=== PATIENT | female | born 1985 | race Caucasian/White ===

== ENCOUNTER 2025-08-29 19:57 | Outpatient (OUT) | payer OTHER, SELFPAY ==
--- OUTSIDE RECORDS SUMMARY | 2025-08-29 20:00 | XMS_ITS | Clinical Summary ---
Author Organization [facility] Address [facility] [place] [address] Care Team Providers Care Lead Software Tester Name Role Phone Catalino Webster DO Primary Care Provider Roseann Shaffer CHILDCARE ATTENDANT.CORPORATE SALES TRAINER Unavailable Marcella Verdin CHILDCARE ATTENDANT.CORPORATE SALES TRAINER Unavailable Allergies Active AllergyReactionsCriticalityNoted DateComments Sulfamethoxazole-IygqdsvmlswbQqzqdcq16/23/2023PenicillinsSwellingMedium 07/04/2006 Allergy skin tests were negative to penicillin on September 23, 2024. Patient will complete a graded challenge to amoxicillin in the allergy department on 12/28/24 Medications * This document contains information received from the source organization and may not represent a complete record from that organization. MedicationSigDispense QuantityRefillsLast FilledStart DateEnd DateStatus albuterol HFA (VENTOLIN HFA) 90 mcg/actuation inhaler Indications:Chronic cough,Subacute cough,WheezingInhale 2 Puffs as instructed every 4 hours as needed for wheezing/shortness of breath. 54 g 4Active olopatadine (PATANOL) 0.1 % ophthalmic solution Use 1 Drop in both eyes two times a day as needed. 5 mL 1105Active azelastine 0.1% nasal spray Use 2 Sprays in each nostril two times a day as needed. 30 mL 1105Active cetirizine (ZYRTEC) 10 mg tablet Indications:Allergic rhinitis, unspecified seasonality, unspecified triggerTAKE 1 TABLET DAILY 90 tablet 5Active budesonide-formoterol (SYMBICORT) 160-4.5 mcg/actuation inhaler Indications:Mild persistent asthma without complication (HCC)Inhale 2 puffs as instructed two times a day. 3 each 308508/ctive Active Problems ProblemNoted DateDiagnosed DateMild persistent asthma without complication 07/22/2023bnormal facial hair01/15/2023Well adult exam01/15/2023Obesity, Class III, BMI >= 40 E66.01011/12/2017Female zhajwjjna04/16/2018TMJ syndrome Resolved Problems ProblemNoted DateDiagnosed DateResolved DateObesity, Class II, BMI 35-39.9 Sprain of neck Encounters DateTypeDepartmentCare XdjxInwsxugajgq79/26/2025Telephone [facility] [address] [place] [address] Catalino Webster, DO 07/20/2025 Patient Msg Pulmonary Medicine [address] [place] [address] Stephanie Luna APRN.CORPORATE SALES TRAINER home sleep study07/20/2025Telephone [facility] [address] [place] [address] Catalino Webster, DO Patient Ngtfmhqg39/19/2025 Get Medical Advice [facility] [address] [place] [address] Catalino Webster, DO Blood work07/14/2025 Patient Msg Neurology [address] [place] [address] Provider, Ccf HSAT KMVBHQAJIIWGY77/31/2025bstract Neurology [address] [place] [address] Main, Sleep Center 06/22/2025 2:00 PM EDTOffice Visit Pulmonary Medicine [address] [place] [address] Stephanie Luna APRN.CORPORATE SALES TRAINER Mild persistent asthma without complication (HCC) (Primary Dx); Seasonal allergies; Morbid obesity (HCC); Witnessed episode of apnea; Uipncrb9606/22/2025 Get Medical Advice [facility] [address] [place] [address] Catalino Webster, DO Mfgcwvv8906/22/2025 Get Medical Advice [facility] [address] [place] [address] Catalino Webster, DO Biadmig9506/21/20256766Wzjrln74/10/2025 Patient Msg [facility] [address] [place] [address] Catalino Webster, DO Activate Your Health Journey: A Supportive Approach to Weight Managementfrom Last 3 Months Immunizations ImmunizationAdministration DatesNext DueHaemophilus influenzae b (Hib PRP-D) vaccine (PROHIBIT)06/25/1986diphtheria tetanus (DT) vaccine, nlfwmjvki53/01/2005 diphtheria tetanus pertussis-Haemophilus influenzae b (DTaP-Hib) vaccine (TRIHIBIT)02/13/1990,12/18/1985,1984,1984,1984hepatitis B immune globulin (HBIG) (HEPAGAM B, HYPERHEP B, NABI-HB)07/07/1999,01/02/1999, 12/02/1998measles mumps rubella (MMR) vaccine (M-M-R II, PRIORIX)02/14/1997, 10/02/1985meningococcal (MPSV4) vaccine, quadrivalent (MENOMUNE)03/10/2003 poliovirus (OPV) vaccine, trivalent, live, oral (ORIMUNE)02/13/1990,12/18/1985, 1984,1984tetanus diphtheria pertussis (Tdap) vaccine, age 7+ yr (ADACEL, BOOSTRIX)03/31/2017tuberculin skin test (TST-PPD), purified protein derivative, dotmviwmsdr71/15/2014,04/15/2007 Family History Medical HistoryRelationCommentsBreast CancerMaternal Grandmotherbreast ca approx. age 40DiabetesMotherHypertensionMothercvaMothercause of deathRelation StatusCommentsFatherAliveMaternal GrandfatherDeceasedHeartMaternal Grandmother DeceasedPancreatic CAMotherAlivePaternal GrandfatherAlivePaternal Grandmother AliveSisterAlive Social History Tobacco UseTypesPacks/DayYears UsedDateSmoking Tobacco: NeverSmokeless Tobacco: Never Tobacco Cessation:Counseling Given: Not Answered Alcohol UseStandard Drinks/WeekCommentsNo0 (1 standard drink = 0.6 oz pure alcohol)[facility] UtilitiesAnswerDate RecordedIn the past 12 months has the electric, gas, oil, or water [employer] threatened to shut off services in your home?No 04/01/2025Social Connection and Isolation PanelAnswerDate RecordedIn a typical week, how many times do you talk on the phone with family, friends, or neighbors?More than three times a week04/01/2025How often do you get together with friends or relatives?More than three times a week04/01/2025How often do you attend hinduism or rastafari services?More than 4 times per year04/01/2025Do you belong to any clubs or organizations such as hinduism groups, unions, fraternal or athletic groups, or school groups?Yes04/01/2025How often do you attend meetings of the clubs or organizations you belong to?More than 4 times per year04/01/2025 Are you , , , , never , or living with a partner?Never ibfxkzq8904/01/2025UDIT-CAnswerDate RecordedQ1: How often do you have a drink containing alcohol?Monthly or less04/01/2025Q2: How many drinks containing alcohol do you have on a typical day when you are drinking?Patient does not drink04/01/2025Q3: How often do you have six or more drinks on one occasion?Never04/01/2025Overall Financial Resource Strain (CARDIA)AnswerDate RecordedHow hard is it for you to pay for the very basics like food, housing, medical care, and heating?Not hard at all04/01/2025PHQ-2AnswerDate RecordedPHQ-2 hktjm977Finmoab regional hospital [place] of Occupational Health - Occupational Stress QuestionnaireAnswerDate RecordedDo you feel stress - tense, restless, nervous, or anxious, or unable to sleep at night because yourmind is troubled all the time - these days?Not at all04/01/2025Exercise Vital SignAnswerDate RecordedOn average, how many days per week do you engage in moderate to strenuous exercise (like a brisk walk)?3 days04/01/2025On average, how many minutes do you engage in exercise at this level?40 min04/01/2025Hunger Vital SignAnswerDate Recorded Within the past 12 months, you worried that your food would run out before you got the money to buymore.Never true04/01/2025Within the past 12 months, the food you bought just didn't last and you didn't have money to get more.Never true 04/01/2025PRAPARE - TransportationAnswerDate RecordedIn the past 12 months, has lack of transportation kept you from medical appointments or from getting medications?No04/01/2025In the past 12 months, has lack of transportation kept you from meetings, work, or from getting things needed for daily living?No 04/01/2025Housing Stability Vital SignAnswerDate RecordedIn the last 12 months, was there a time when you were not able to pay the mortgage or rent on time?Yes 04/01/2025Number of Times Moved in the Last YearNot on file04/01/2025Homeless in the Last YearNot on file04/01/2025rea Deprivation IndexAnswerDate Recorded National Score (1-100), lower number is lower zrdv9845State Score (1- 10), lower number is lower obbv8003Data from: https://www.neighborhoodatlas.medicine.[facility].edu/. Last address used for bjhvcwaam[address]01/15/2023CommentsNoSex and Gender InformationValueDate RecordedSex Assigned at KdxqfZyblkg60/11/2021 12:43 PM EST Legal AzqUhlcnx28/02/2012 9:53 AM ESTGender NmpvkmxnMaatcv26/11/2021 12:43 PM ESTSexual OrientationNot on fileOccupationIndustryJob Start DateJob End DateNot on fileNot on fileNot on fileNot on fileTEACHERNot on fileNot on fileNot on file Last Filed Vital Signs Vital SignReadingTime TakenCommentsBlood Dpmcctbf744/7206/22/2025 1:44 PM EDT Kaazv145106/22/2025 1:44 PM TTPXtzhyemgfba64.2 ??C (97.1 ??F)04/01/2025 10:21 AM EDTRespiratory Ryha9223 1:44 PM EDTOxygen Hdvbhsybur691%06/22/2025 1:44 PM EDTInhaled Oxygen Concentration--Xswuue140.4 kg (250 lb)06/22/2025 1:44 PM CKFGfwoho881.5 cm (5' 2.01 )04/01/2025 10:21 AM EDTBody Mass Index45.71 04/01/2025 10:21 AM EDT Plan of Treatment DateTypeDepartmentCare Team (Latest Contact Info)Cvxayjjcdzz54/22/2026 9:00 AM EDTOffice Visit Pulmonary Medicine [address] [place], [place] [id number] Stephanie Luna APRN.CORPORATE SALES TRAINER [address] [place], [place] [address] 6 MTH F/U ASTHMAHealth MaintenanceDue DateLast DoneCommentsHIV Screening 2002Hepatitis C Omnnvohpr97/18/2002Hepatitis B Vaccine (1 of 3 - 19+ 3- dose series)2003HPV Vaccine (1 - 3-dose SCDM series)2011nxiety Jtopgxxip47/03//4Depression Ynhsidgvh72/03//4Covid-19 Vaccine ( - season)2025Influenza Vaccine (#1)5Cervical Cancer Mnfzdnbbx21/, 11/13/2020, 12/24/2017, Additional history existsMammogram Tvpxdgwga96/22/2025Annual PCP Team Chronic Disease VisitDTaP,Tdap,Td Vaccine (9 - Td or Tdap)05/24/2032 05/24/2022, 03/31/2017, 12/30/2004, Additional history exists Procedures Procedure NamePriorityDate/TimeAssociated DiagnosisCommentsC-REACTIVE PROTEIN (CRP)Emepqoo5107/26/2025 6:59 AM EST Well adult exam Fatigue, unspecified type INSULIN, TOTAL, FXKZHYbocdvm09/25/2025 6:59 AM EST Well adult exam Fatigue, unspecified type Obesity, Class III, BMI >= 40 E66.01 T4 FREE/FREE MYBSIRXqvcxbh82/25/2025 6:59 AM EST Well adult exam Fatigue, unspecified type TSH WOUOmnmvug68/25/2025 6:59 AM EST Well adult exam Fatigue, unspecified type HEMOGLOBIN T6IThwlpbs74/25/2025 6:59 AM EST Well adult exam Dyslipidemia Obesity, Class III, BMI >= 40 E66.01 LIPID PANEL, VZPPPKHAultpol11/25/2025 6:59 AM EST Well adult exam Dyslipidemia Obesity, Class III, BMI >= 40 E66.01 CBC + XMHPYffoqte16/25/2025 6:59 AM EST Well adult exam Fatigue, unspecified type COMPREHENSIVE METABOLIC ACDLXFxfpetu25/25/2025 6:59 AM EST Well adult exam Fatigue, unspecified type HOME SLEEP APNEA TEST (HSAT)Rtggkhc4107/14/2025 10:41 PM EST Witnessed episode of apnea Snoring ROLF SCREENING W TCMHFzkwoeq92/22/2025 1:58 PM EDT Encounter for screening mammogram for breast cancer PAP FLUID CERVICAL UAFNDOCQFDqtcgwz30/15/2021 4:39 PM EDT Screening for cervical cancer from Last 3 Months or Most Recently Relevant to Health Maintenance Results * THYROID STIMULATING HORMONE (07/26/2025 6:59 AM EST)ComponentValueRef Range Test MethodAnalysis TimePerformed AtPathologist SignatureTSH2.2300.270 - 4.200 mIU/L109/25/2024 1:47 PM ESTAZRON GENERAL LABORATORYComment: If the patient is , TSH reference range varies by gestational period: First Trimester (weeks 9-12): 0.180-2.990 mIU/L Second Trimester: 0.110-3.980 mIU/L Third Trimester: 0.480-4.710 mIU/L Brian Whiteside et al. A Practical Approach for the Verifications and Determination of Site- and Trimester-Specific Reference Intervals for Thyroid Function tests in . Thyroid, 2019:29:3:412-420.Vikram Dolan, et al. 2017 Guidelines of the [place] Thyroid Association for the Diagnosis and Management of Thyroid Disease during and the . Thyroid, 2017:27:3:315-389. Specimen (Source)Anatomical Location / LateralityCollection Method / Volume Collection TimeReceived TimeBloodBLOOD SPECIMEN / UnknownVenipuncture / Unknown 07/26/2025 6:59 AM EST07/26/2025 6:59 AM EST Narrative Authorizing ProviderResult TypeResult StatusJojeffy Whiteside Webster DOLABORATORYFinal ResultPerforming OrganizationAddressCity/State/ZIP CodePhone Number [facility] [address] * T4 FREE/FREE THYROXINE (07/26/2025 6:59 AM EST)ComponentValueRef RangeTest MethodAnalysis TimePerformed AtPathologist SignatureFree T41.30.9 - 1.7 ng/dL 07/26/2025 1:47 PM ESTAZRON GENERAL LABORATORYSpecimen (Source)Anatomical Location / LateralityCollection Method / VolumeCollection TimeReceived Time BloodBLOOD SPECIMEN / UnknownVenipuncture / Pysejfm0307/26/2025 6:59 AM EST 07/26/2025 6:59 AM EST Narrative Authorizing ProviderResult TypeResult StatusJordan L Webster DOLABORATORYFinal ResultPerforming OrganizationAddressCity/State/ZIP CodePhone Number [facility] [address] [place] [address], * LIPID PANEL, FASTING (07/26/2025 6:59 AM EST)ComponentValueRef RangeTest MethodAnalysis TimePerformed AtPathologist SignatureCholesterol, Tpmof834<200 mg/dL07/26/2025 1:47 PM ESTAKRON GENERAL LABORATORYComment: <200 mg/dL, Desirable 200-239 mg/dL, Borderline high >239 mg/dL, High Ofjguxntdajo03<150 mg/dL07/26/2025 1:47 PM ESTAKRON GENERAL LABORATORYComment: <150 mg/dL, Normal 150-199 mg/dL, Borderline high 200-499 mg/dL, High >499 mg/dL, Very high HDL Esldgmeghus64>39 mg/dL07/26/2025 1:47 PM ESTAKRON GENERAL LABORATORYComment: 40-59 mg/dL, Acceptable >59 mg/dL, High: Negative risk factor for coronary heart disease <40 mg/dL, Low: Positive risk factor for coronary heart disease LDL Cholesterol, Mqwuiuzlty94<100 mg/dL07/26/2025 1:47 PM ESTTotus PowerRON GENERAL LABORATORYComment: <100 mg/dL, Optimal 100-129 mg/dL, Near optimal/above optimal 130-159 mg/dL, Borderline high 160-189 mg/dL, High >189 mg/dL, Very high Secondary prevention optimal LDL Cholesterol levels are recommended to be <70 mg/dL LDL cholesterol is calculated using the Ballesteros-NIH equation. Non HDL Cezbcwghbtt168<130 mg/dL07/26/2025 1:47 PM ESTAKRON GENERAL LAB[facility] Comment: <130 mg/dL, Optimal 130-159 mg/dL, Near optimal/above optimal 160-189 mg/dL, Borderline high 190-219 mg/dL, High >219 mg/dL, Very high Secondary prevention optimal non HDL Cholesterol levels are recommended to be <100 mg/dL VLDL Hmaxdcsshkr65<30 mg/dL07/26/2025 1:47 PM ESTAKRON GENERAL LABORATORYTC:HDL Ratio3.40<5.10109/25/2024 1:47 PM ESTAKRON GENERAL LABORATORYLDL:HDL Ratio2.00 <2.5407/26/2025 1:47 PM ESTAKRON GENERAL LABORATORYComment: Reference: 1. National Cholesterol Education Program ATP III Guideline At-A-Glance Quick Desk Reference: National Heart, Lung, and Blood [place]. National Institutes of Health. 2001: NIH Publication No. 01-3305. 2. An International Atherosclerosis Society position paper: global recommendations for the management of dyslipidemia: executive summary, Atherosclerosis. 2014: 232(2):410-413. Fasting Piwq28prx32/25/2025 1:[address] LABORATORYSpecimen (Source) Anatomical Location / LateralityCollection Method / VolumeCollection Time Received TimeBloodBLOOD SPECIMEN / UnknownVenipuncture / Zjghbff2907/26/2025 6:59 AM EST07/26/2025 6:59 AM EST Narrative Authorizing ProviderResult TypeResult StatusJojeffy Whiteside Webster DOLABORATORYFinal ResultPerforming OrganizationAddressCity/State/ZIP CodePhone Number [facility] [address] [place] [address], * (ABNORMAL) INSULIN, TOTAL, SERUM (07/26/2025 6:59 AM EST)ComponentValueRef RangeTest MethodAnalysis TimePerformed AtPathologist SignatureInsulin, Total 25.4(H)2.6 - 24.9 uU/mL07/26/2025 7:[address] [facility] MAIN LABComment: Reference intervals established for fasting specimens. Specimen (Source)Anatomical Location / LateralityCollection Method / Volume Collection TimeReceived TimeBloodBLOOD SPECIMEN / UnknownVenipuncture / Unknown 07/26/2025 6:59 AM EST07/26/2025 6:59 AM EST Narrative Authorizing ProviderResult TypeResult StatusJordmirella L Webster DOLABORATORYFinal ResultPerforming OrganizationAddressCity/State/ZIP CodePhone Number [facility] [address] [place] [address], * HEMOGLOBIN A1C (07/26/2025 6:59 AM EST)ComponentValueRef RangeTest Method Analysis TimePerformed AtPathologist SignatureHemoglobin A1C5.44.3 - 5.6 % 07/26/2025 10:[address] [facility] MAIN LABComment:[place] Diabetes Association guidelines indicate that patients with HgbA1c in the range 5.7- 6.4% are at increased risk for development of diabetes, and intervention by lifestyle modification may be beneficial. HgbA1c greater or equal to 6.5% is considered diagnostic of diabetes.Estimated Average Brgepdf138qf/dL07/26/2025 10:23 PM ESTST. [facility]IN LABComment:eAG: (Estimated average glucose) is a calculated value from HgbA1c and is petroleum products sales representative of the average blood glucose level in the last 2-3 month period.Specimen (Source)Anatomical Location / LateralityCollection Method / VolumeCollection TimeReceived Time BloodBLOOD SPECIMEN / UnknownVenipuncture / Wchwjoy7807/26/2025 6:59 AM EST 07/26/2025 6:59 AM EST Narrative Authorizing ProviderResult TypeResult StatusJordmirella Webster DOLABORATORYFinal ResultPerforming OrganizationAddressCity/State/ZIP CodePhone Number [facility] [address] * (ABNORMAL) COMPREHENSIVE METABOLIC PANEL (07/26/2025 6:59 AM EST)Component ValueRef RangeTest MethodAnalysis TimePerformed AtPathologist Signature Protein, Total7.36.3 - 8.0 g/dL07/26/2025 1:47 PM ESTAKRON GENERAL LAB[facility]ATORY Albumin3.93.9 - 4.9 g/dL07/26/2025 1:47 PM ESTAKRON GENERAL LABORATORYCalcium, Total8.98.5 - 10.2 mg/dL07/26/2025 1:47 PM ESTAK[facility] Bilirubin, Total0.40.2 - 1.3 mg/dL07/26/2025 1:47 PM ESTAKRON GENERAL LABORATORYAlkaline Hhuoimebkid6555 - 123 U/L109/25/2024 1:47 PM ESTAKRON GENERAL EZEEDUQUFPDVS0291 - 35 U/L109/25/2024 1:47 PM ESTAKRON GENERAL BRPIDSELLWQFM738 - 38 U/L109/25/2024 1:47 PM ESTAKRON GENERAL LABORATORYGlucose 9374 - 99 mg/dL07/26/2025 1:47 PM ESTAKRON GENERAL LABORATORYComment: The [place] Diabetes Association (ADA) provides guidance for cutoff values for fasting glucose andrandom glucose. The ADA defines fasting as no caloric intake for at least 8 hours. Fasting plasma glucose results between 100 to 125 mg/dL indicate increased risk for diabetes (prediabetes). Fasting plasma glucose results greater than or equal to 126 mg/dL meet the criteria for diagnosis of diabetes. In the absence of unequivocal hyperglycemia, results should be confirmed by repeat testing. In a patient with classic symptoms of hyperglycemia or hyperglycemic crisis, random plasma glucose results greater than or equal to 200 mg/dL meet the criteria for diagnosis of diabetes. Reference: Standards of Medical Care in Diabetes 2016, [place] Diabetes Association. Diabetes Care. 2016.39(Suppl 1). FLK193 - 21 mg/dL07/26/2025 1:47 PM ESTTotus PowerRON GENERAL LABORATORYCreatinine1.01(H) 0.58 - 0.96 mg/dL07/26/2025 1:47 PM ESTTotus PowerRON GENERAL GBWMVHNEVQJqvaah600318 - 144 mmol/L109/25/2024 1:47 PM ESTTotus PowerRON GENERAL LABORATORYPotassium4.03.7 - 5.1 mmol/L109/25/2024 1:47 PM ESTTotus PowerRON GENERAL NHIKKOFOIBQgwexyly69554 - 107 mmol/L 07/26/2025 1:47 PM ESTTotus PowerRON GENERAL SEZXUZXRTFBX71281 - 30 mmol/L109/25/2024 1:47 PM ESTTotus PowerRON GENERAL LABORATORYAnion Gap98 - 15 mmol/L109/25/2024 1:47 PM ESTTotus PowerRON GENERAL LABORATORYEstimated Glomerular Filtration Rate72>=60 mL/min/1.73m 07/26/2025 1:47 PM ESTTotus PowerRON GENERAL LABORATORYComment:Estimated Glomerular Filtration Rate (eGFR) is calculated using the 2020 CKD-EPI creatinine equation. This equation utilizes serum creatinine, sex, and age as parameters. The creatinine assay has traceable calibration to isotope dilution-mass spectrometry. Refer to KDIGO guidelines for clinical interpretation. In patients with unstable renal function, e.g. those with acute kidney injury, the eGFRmay not accurately reflect actual GFR.Specimen (Source)Anatomical Location / LateralityCollection Method / VolumeCollection TimeReceived TimeBloodBLOOD SPECIMEN / UnknownVenipuncture / Izvfmrz4307/26/2025 6:59 AM EST07/26/2025 6:59 AM EST Narrative Authorizing ProviderResult TypeResult StatusJordmirella Webster DOLABORATORYFinal ResultPerforming OrganizationAddressCity/State/ZIP CodePhone Number [address] [place] [address], [place] * (ABNORMAL) COMPLETE BLOOD COUNT AND DIFFERENTIAL (07/26/2025 6:59 AM EST) ComponentValueRef RangeTest MethodAnalysis TimePerformed AtPathologist SignatureWBC7.863.70 - 11.00 k/uL07/26/2025 12:56 PM ESTTotus PowerRON GENERAL LABORATORYRBC4.973.90 - 5.20 m/uL07/26/2025 12:56 PM ESTAZReveal Imaging Technologies RXBLMEQZHZNdvpozzzvh05.011.5 - 15.5 g/dL07/26/2025 12:56 PM ESTAZVivaldi Biosciences [facility] SXXATQQIQFMldeqfehaf97.436.0 - 46.0 %07/26/2025 12:56 PM Independent IPAZRe[employer]al [employer] EPPQCMWOIJLGU28.3(L)80.0 - 100.0 fL07/26/2025 12:56 PM [employer] RDOAIHBRTXUNT06.226.0 - 34.0 pg07/26/2025 12:56 PM Independent IPAZV[employer]di [employer] [facility] MCHC33.030.5 - 36.0 g/dL07/26/2025 12:56 PM Independent [employer] LABORATORYRDW-CV 13.211.5 - 15.0 %07/26/2025 12:56 PM [employer] LABORATORYPlatelet Count 115812 - 400 k/uL07/26/2025 12:56 PM ESTwesync.tv PMYJVBBEXWUFP74.59.0 - 12.7 fL07/26/2025 12:56 PM [employer] LABORATORYNeutrophils %58.2% 07/26/2025 12:56 PM ESTwesync.tv LABORATORYAbs Neut4.581.45 - 7.50 k/uL 07/26/2025 12:56 PM ESTwesync.tv LABORATORYLymphocytes %23.3%07/26/2025 12:56 PM ESTwesync.tv LABORATORYAbs Lymph1.831.00 - 4.00 k/uL07/26/2025 12:56 PM ESTwesync.tv LABORATORYMonocytes %9.0%07/26/2025 12:56 PM EST [employer] GENERAL LABORATORYAbs Mono0.71<0.87 k/uL07/26/2025 12:56 PM ESTwesync.tv LABORATORYEosinophils %8.3%07/26/2025 12:56 PM ESTAKRON GENERAL LABORATORYAbs Eosin0.65(H)<0.46 k/uL07/26/2025 12:56 PM ESTAKRON GENERAL LABORATORYBasophils %0.9%07/26/2025 12:56 PM ESTAKRON GENERAL LABORATORYAbs Baso0.07<0.11 k/uL07/26/2025 12:56 PM ESTAKRON GENERAL LABORATORYImmature Granulocytes %0.3%07/26/2025 12:56 PM ESTAKRON GENERAL LABORATORYAbs Immature Gran<0.03<0.10 k/uL07/26/2025 12:56 PM ESTAKRON GENERAL LABORATORYNRBC0.0/100 WBC07/26/2025 12:56 PM ESTAKRON GENERAL LABORATORYAbsolute nRBC<0.01<0.01 k/uL 07/26/2025 12:56 PM ESTAKRON GENERAL LABORATORYDiff QylqNohq64/25/2025 12:56 PM ESTAKRON [facility] LABORATORYSpecimen (Source)Anatomical Location / LateralityCollection Method / VolumeCollection TimeReceived TimeBloodBLOOD SPECIMEN / UnknownVenipuncture / Jtcncdc6307/26/2025 6:59 AM EST07/26/2025 6:59 AM EST Narrative Authorizing ProviderResult TypeResult StatusJordan L Webster DOLABORATORYFinal ResultPerforming OrganizationAddressCity/State/ZIP CodePhone Number [facility] [address] * (ABNORMAL) C-REACTIVE PROTEIN (07/26/2025 6:59 AM EST)ComponentValueRef Range Test MethodAnalysis TimePerformed AtPathologist SignatureCRP0.9(H)<0.9 mg/dL 07/26/2025 1:14 PM ESTAZRON [facility] LABORATORYSpecimen (Source)Anatomical Location / LateralityCollection Method / VolumeCollection TimeReceived Time BloodBLOOD SPECIMEN / UnknownVenipuncture / Ilhlmqm3907/26/2025 6:59 AM EST 07/26/2025 6:59 AM EST Narrative Authorizing ProviderResult TypeResult StatusJordan L Webster DOLABORATORYFinal ResultPerforming OrganizationAddressCity/State/ZIP CodePhone Number [facility] [address] [place] [address], * HOME SLEEP APNEA TEST (HSAT) (07/14/2025 10:41 PM EST)Specimen (Source) Anatomical Location / LateralityCollection Method / VolumeCollection Time Received Time07/14/2025 10:41 PM EST [facility] - 07/14/2025 10:41 PM EST [facility] at [address], [facility] [address], [place] [address] ; Home Sleep Apnea Test (HSAT) Study Report Name: NILES CABA ? Date of Study: 07/14/2025 [facility]#: [id number] Age: 40 (: 1985) ? ESS: ?Neck Circ. (cm): 38 Height (cm): 157 ?Weight (kg): 113 ?BMI: 45.7 Referring Provider: STEPHANIE CLICK Mailcode: Sleep history: The patient is a 40 year old ??female with a history of snoring. The patient endorses being a habitual side sleeper. The patient is here for assessment of obstructive sleep apnea. Pertinent medical history: Allergies, Asthma, Class III obesity, Hypertension Medications: Albuterol, Zyrtec, Flonase, Symbicort Sleep procedure: PSG unattended Type III, minimum of 4 parameters (78297) Procedure: This study was performed using a Type III ambulatory PSG device and was unattended. The patient was instructed on proper use of the device by a registered dairy manufacturing technologist. The monitored parameters included heart rate, oxygen saturation, continuous airflow with thermistor and nasal pressure transducer, snoring via nasal pressure transducer, chest and abdominal effort, and body position. LINDA definition: Respiratory event index (LINDA), calculated as respiratory events x 60 / TRT (total recording time in minutes). Note: the apnea hypopnea index has been replaced by the respiratory event index for home sleep apnea test. Since the home sleep apnea test does not measure sleep, the LINDA is most accurate index of respiratory events. The LINDA is a surrogate of the AHI per the AASM Manual for Scoring of Sleep and Associated Events version 3. Apnea definition: The peak signal excursions drop by >90% of pre-event baseline using an oronasal thermal sensor (diagnostic study), PAP device flow (titration study) or an alternative apnea sensor (diagnostic study). The duration of the >90% drop in signal excursion is >=10 seconds. Hypopnea definition: The peak signal excursions drop by >= 30% of pre-event baseline using nasal pressure (diagnostic study), PAP device flow (titration study) or an alternative hypopnea sensor (diagnostic study). The duration of the >= 30% drop in signal excursion is >=10 seconds. There is a greater than or equal to 3% oxygen desaturation from pre-event baseline. RESPIRATORY DATA: The study started at 22:42:38 and ended at 06:42:16 and the total recording time was 479 minutes. By convention, sleep is assumed for the whole recording. Snoring was noted. There was a total of 36 respiratory events. Of these events, the total number of apneas was 7 (4 obstructive, 0 mixed, and 3 central (8.3%)) and 29 hypopneas. The central apnea index (RENETTA) was 0.4. The respiratory event index (LINDA) was 4.5 events per hour of study time. The mean oxygen saturation during the study was 96.0%, with a minimum oxygen saturation of 88.0%. The patient spent 7.5 minutes at oxygen saturation measured less than 90% (1.6% of recording time) and 2.8 minutes at oxygen saturation measured at or less than 88% (0.6% of recording time). ?Time ? LINDA/AHI Supine ?114.5 min ?8.9 Off-Supine ?365.0 min ?3.1 Total ? 479.5 min ?4.5 ECG DATA: The average heart rate was 65 bpm with a range of 50 bpm to 100 bpm. ICSD DIAGNOSIS: Primary Snoring [R06.83] Sleep Disorder, Unspecified [G47.9] IMPRESSION/RECOMMENDATIONS: 1. This study neither confirms nor refutes a diagnosis of obstructive sleep apnea as HSAT does not measure certain types of respiratory events that can only be measured on an in-laboratory polysomnogram 2. Recommend an in-laboratory polysomnogram if sleep apnea remains highly suspected. INTERPRETING PHYSICIAN: Jeane Cnuningham DO, MS I attest that I have performed epoch by epoch review of the entire raw data and find this study to be technically adequate. Report Digitally Signed By: JEANE GARRIDO D.O. (07/19/2025 4:07:02 PM) Authorizing ProviderResult TypeResult StatusChristine M Click CHILDCARE ATTENDANT.CNPSCHEDULED PROCEDURESFinal ResultPerforming OrganizationAddressCity/State/ZIP CodePhone Number SLEEP LAB * ROLF SCREENING W ABBEY (03/22/2025 1:58 PM EDT)Anatomical RegionLaterality ModalityBreastOtherSpecimen (Source)Anatomical Location / LateralityCollection Method / VolumeCollection TimeReceived Time03/22/2025 1:58 PM EDT Impressions 03/23/2025 11:11 AM EDT IMPRESSION: There is no mammographic evidence of malignancy in either breast. Routine screening mammogram is recommended. Annual mammogram will be due in 1 year. BI-RADS Category 1: Negative RISK: Based on the Tyrer-Cuzick (TC) risk assessment model, this patient has a 10.4% ??lifetime risk of developing breast cancer, meaning they are at average risk for developing breast cancer. However, this is only an estimate based on available history provided on the patient's questionnaire. We encourage all patients to talk with their providers about these results, further recommendations for managing breast health, and appropriate supplemental screening options if the patient has dense breast tissue. Interpreting Radiologist: Deanna Cortes M.D. Electronically signed on: 03/23/2025 Costumer: ESTER Transcribe Date/Time: Mar 22 2025 ??1:25P Dictated by: DEANNA CORTES MD This examination was interpreted and the report reviewed and electronically signed by: DEANNA CORTES MD on Mar 23 2025 11:05AM ??EST Narrative 03/23/2025 11:11 AM EDT * * *Final Report* * * DATE OF EXAM: Mar 22 2025 ??1:58PM ?? WRW ?? [id number] ??- ??ROLF SCREENING W ABBEY ??/ PROCEDURE REASON: Encounter for screening mammogram for breast cancer ? * * * * Physician Interpretation * * * * RESULT: [facility] [address] [place] [address] #[id number] - ROLF SCREENING W ABBEY HISTORY: 39 year-old patient presents for screening. Patient is asymptomatic in both breasts. Patient states no personal history of breast cancer. The patient has a family history of breast cancer. COMPARISON STUDIES: This is a baseline study. MAMMOGRAM TECHNIQUE: The study was acquired using full field digital technology and interpreted from soft copy. Digital Breast Tomosynthesis (DBT) images were obtained and used to assist in the interpretation of this examination. MAMMOGRAM FINDINGS: The breasts are almost entirely fatty. No suspicious masses, calcifications or other abnormalities are seen in either breast. Procedure Note Provider, [facility] [place] - 03/23/2025 * * *Final Report* * * DATE OF EXAM: Mar 22 2025 1:58PM WRW [id number] - ROLF SCREENING W ABBEY / PROCEDURE REASON: Encounter for screening mammogram for breast cancer * * * * Physician Interpretation * * * * RESULT: [facility] [address] [place], [place] [id number] #[id number] - ROLF SCREENING W ABBEY HISTORY: 39 year-old patient presents for screening. Patient is asymptomatic in both breasts. Patient states no personal history of breast cancer. The patient has a family history of breast cancer. COMPARISON STUDIES: This is a baseline study. MAMMOGRAM TECHNIQUE: The study was acquired using full field digital technology and interpreted from soft copy. Digital Breast Tomosynthesis (DBT) images were obtained and used to assist in the interpretation of this examination. MAMMOGRAM FINDINGS: The breasts are almost entirely fatty. No suspicious masses, calcifications or other abnormalities are seen in either breast. IMPRESSION IMPRESSION: There is no mammographic evidence of malignancy in either breast. Routine screening mammogram is recommended. Annual mammogram will be due in 1 year. BI-RADS Category 1: Negative RISK: Based on the Tyrer-Cuzick (TC) risk assessment model, this patient has a 10.4% lifetime risk of developing breast cancer, meaning they are at average risk for developing breast cancer. However, this is only an estimate based on available history provided on the patient's questionnaire. We encourage all patients to talk with their providers about these results, further recommendations for managing breast health, and appropriate supplemental screening options if the patient has dense breast tissue. Interpreting Radiologist: Deanna Cortes M.D. Electronically signed on: 03/23/2025 Costumer: ESTER Transcribe Date/Time: Mar 22 2025 1:25P Dictated by: DEANNA CORTES MD This examination was interpreted and the report reviewed and electronically signed by: DEANNA CORTES MD on Mar 23 2025 11:05AM EST Authorizing ProviderResult TypeResult StatusJordmirella Webster DOMAM-PAMAFinal Result * PAP FLUID CERVICAL SCREENING (11/13/2020 4:39 PM EDT)ComponentValueRef Range Test MethodAnalysis TimePerformed AtPathologist SignatureCase Report Gynecologic Cytology Report ? Case: [id number] ? Authorizing Provider: ??Iam Morrow ? Collected: ? 11/13/2020 04:39 PM ? Ordering Location: [facility] Obstetrics & Gynecolgy Received: 11/14/2020 05:05AM ? First Screen: ?Eneida [address] Ct(Ascp) ? Specimen: ?PAP MANUAL SCREENING, CERVICAL SCREENING FLUID ? 11/14/2020 2:24 PM EDTAKRON GENERAL LABORATORYFINAL DIAGNOSISA - CERVICAL SCREENING FLUID Satisfactory for interpretation, No endocervical component Negative for Intraepithelial lesion or malignancy. 11/14/2020 2:24 PM [facility]KR[facility] at 1424 EDTClinical HistoryROUTINE EXAM11/14/2020 2:24 PM EDTAKRON GENERAL LABORATORYHPV Requested?Yes, automatic HPV patients over [address]11/14/2020 2:24 PM [facility] [id number]/ 2:24 PM EDTAON GENERAL LABORATORYPerforming LabTechnical component, rn mds coordinator screening performed at [facility], [address] [place] [address] CLIA# [id number] Diagnostic interpretation performed at [facility], [address] [place] [address] CLIA# [id number] Math Instructor: Ayan Cherry M.D.11/14/2020 2:24 PM [facility] GENERAL LABORATORYPap DisclaimerThe Pap Smear is a screening test for cervical cancer. False negative results occur with all screening tests, emphasizing the need for rescreening at recommended intervals, and clinical correlation.11/14/2020 2:24 PM [facility] GENERAL LABORATORYCytology InterpretationNegative for Intraepithelial lesion or malignancy.11/14/2020 2:24 PM [facility] at 1424 EDTSpecimen (Source)Anatomical Location / LateralityCollection Method / Volume Collection TimeReceived TimeSterile Fluid/Body FluidTHINPREP CYTOLOGY TECHNIQUE / UnknownNon Blood / Ppcsxip1011/13/2020 4:39 PM EDT11/14/2020 5:05 AM EDT Narrative Authorizing ProviderResult TypeResult StatusMark Paul Morrow MDCYTOLOGYFinal ResultPerforming OrganizationAddressCity/State/ZIP CodePhone Number [facility] [address] [place], [place] [phone] from Last 3 Months or Most Recently Relevant to Health Maintenance Insurance MemberSubscriberPlan / Payer (Effective 2014-Present)Name:Niles Caba Stevo Relation to Subscriber:SelfName:Higinio Niles L Payer ID:Not on file Type:PPO Address: [place] [id number] * Guarantor: Niles Caba TypeRelation to PatientDate of BirthPhone Billing [id number] [address] [place] [address] * Guarantor: Niles Caba TypeRelation to PatientDate of BirthPhone Billing AddressSelf [id number] 1985 [address] [place] [address] Care Teams Team MemberRelationshipSpecialtyStart DateEnd Date Catalino Webster DO [address] [place], [place] [phone] PCP - GeneralFadcly Medicine01/15/23 Roseann Shaffer, RAFAEL.CORPORATE SALES TRAINER [address] [place], [place] [phone] Care PartnerEn[facility] Bdmpqfut22/8/24 Marcella Verdin, CHILDCARE ATTENDANT.CORPORATE SALES TRAINER [address] [place], [place] [phone] [facility]02/14/25
--- OUTSIDE RECORDS SUMMARY | 2025-08-29 20:00 | XMS_ITS | Patient Health Record ---
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 [place] [address] [id number] Arleen Sylvester Self - patient is the insured MEDICAL (GENERAL) HISTORY Medical History History ICD Code TMJ
== END 2025-08-29 19:58 | disposition home or self-care (01) ==
DX: R06.83 Snoring (principal); R06.81 Apnea, not elsewhere classified
CPT/HCPCS: 95811